=== PATIENT | male | born 1985 | race Caucasian/White ===

== ENCOUNTER 2016-09-15 08:19 | Emergency (ER) | payer OTHER ==
[~2016-09-15] VITALS: Ht 170.2 cm; Wt 70.0 kg
[~2016-09-15 08:19] MED LIST: IBUP800T23 PO; NAPR-576 PO
[2016-09-15 08:21] VITALS: BP 131/75; PULSE 75; RESP 14; TEMP 98.1; O2SAT 98
--- NOTE | 2016-09-15 08:31 | PD ---
HPI . possible brown recluse bite per patient's reports Chief Complaint: Bite or Sting Time Seen by Provider: 08:30 Travel History International Travel<30 days: No Contact w/Intl Traveler<30days: No Traveled to known affect area: No History of Present Illness HPI 31-year-old male here with complaints of a possible brown recluse bite to his left buttocks at about 6 AM this morning. Patient says he noticed a spider walking on his bed last night and tried to kill it, but was unable to do so. This morning he woke up after something bit him on his buttocks and he found a spider. He is here for evaluation. He did bring the spider in with him. He denies any fever or chills. He has no other complaints. PFSH Past Medical History Diminished Hearing: No Kidney Stones: Yes Immunizations Current: No Past Surgical History Other Surgery: Yes (INCISION TO LEFT CHEST WALL TO DRAIN STAPH INFECTION) Social History Alcohol Use: Yes (OCCASIONAL) Tobacco Use: Yes (1 PPD) Substance Use: No (PT DENIES RECENT USE) Allergies-Medications (Allergen,Severity, Reaction): Coded Allergies: No Known Allergies (Verified , 09/15/16) Reported Meds & Prescriptions Reported Meds & Active Scripts Active Ibuprofen 800 Mg Tab 800 Mg PO Q8 PRN Naproxen 500 Mg Tab 500 Mg PO Q12HR PRN Review of Systems General / Constitutional: No: Fever Eyes: No: Visual changes HENT: No: Headaches Cardiovascular: No: Chest Pain or Discomfort Respiratory: No: Shortness of Breath Gastrointestinal: No: Abdominal Pain Genitourinary: No: Dysuria Musculoskeletal: No: Pain Skin: Positive Other (spider bite), No Rash Neurologic: No: Weakness Psychiatric: No: Depression Endocrine: No: Polydipsia Hematologic/Lymphatic: No: Easy Bruising Physical Exam Narrative GENERAL: AAO x 3, no acute distress, Well-nourished, well-developed patient. SKIN: Warm and dry. No visible rashes or bruising. HEAD: Normocephalic and atraumatic. EYES: No scleral icterus. No injection or drainage. ENT: No nasal drainage noted. Airway patent. NECK: Supple, trachea midline. No JVD. CARDIOVASCULAR: Regular rate and rhythm without murmurs, gallops, or rubs. RESPIRATORY: Breath sounds equal bilaterally. No accessory muscle use. No rhonchi or rales. GASTROINTESTINAL: Abdomen soft, non-tender, nondistended. EXTREMITIES: No cyanosis or edema. BUTTOCKS: Kiera PETERSON present: no cellulitis, no excoriations, no ulceration, there is a small pinpoint lesion where patient reports bite site. BACK: Nontender without obvious deformity. No CVA tenderness. PSYCH: AAO x 3, normal affect. Data Data Last Documented VS Vital Signs Date Time Temp Pulse Resp B/P Pulse Ox O2 Delivery O2 Flow Rate FiO2 09/15/16 08:21 98.1 75 14 131/75 98 MDM Medical Decision Making Medical Screen Exam Complete: Yes Emergency Medical Condition: Yes Medical Record Reviewed: Yes Differential Diagnosis Spider bite, less likely cellulitis, less likely folliculitis Narrative Course 31-year-old male here with complaints of a possible brown recluse bite to his left buttocks at about 6 AM this morning. Patient says he noticed a spider walking on his bed last night and tried to kill it, but was unable to do so. This morning he woke up after something bit him on his buttocks and he found a spider. He is here for evaluation. He did bring the spider in with him. He denies any fever or chills. He has no other complaints. Patient seen and examined. He does have a small pinpoint area of erythema on his left buttocks. The spider was brought in for inspection and it does not appear to be a brown recluse. It does not have the markings present on the thorax of a brown recluse. I do not see any evidence of cellulitis or ulceration. It is very early on the spider bite. I advised him to look out for signs of infection and return to the ED if those return. Per up to date there are no recommendations for prophylactic antibiotics or antivenom of any sort. Patient can use [id number] Tylenol or ibuprofen for pain. He will need follow-up primary care provider. Patient verbalized understanding of instructions, questions were answered, and thanked me for their care. I advised them if their condition worsens, please return to the nearest emergency room for further care. Diagnosis Primary Impression: Insect bite Qualified Code: W57.XXXA - Insect bite, initial encounter Patient Instructions: Acute Wound Care (ED), General Instructions Additional Instructions: [place] for worsening signs of infection which include increased redness, increased warmth, purulent drainage, increased swelling or streaking. If any of these develop, please return to the emergency department immediately. Please follow-up with primary care provider. Use Tylenol or Motrin as needed for pain. Disposition: 01 DISCHARGE HOME Condition: Stable Juana Nolen Sep 15, 2016 08:31
== END 2016-09-15 09:08 | disposition home or self-care (01) ==
LOC: NEPK 08:19
DX: S30.860A Insect bite (nonvenomous) of lower back and pelvis, initial encounter (principal); F17.200 Nicotine dependence, unspecified, uncomplicated; Z87.442 Personal history of urinary calculi; W57.XXXA Bitten or stung by nonvenomous insect and other nonvenomous arthropods, initial encounter
CPT/HCPCS: 99282